=== PATIENT | female | born 1980 | race Caucasian/White ===

== ENCOUNTER 2020-12-13 15:31 | Outpatient (CLI) | payer OTHER, SELFPAY ==
--- NOTE | ~2020-12-13 | CT_ITS ---
EXAMINATION: CT abdomen pelvis wo con DATE: 12/13/2020 15:55 INDICATION: Ventral hernia without obstruction TECHNIQUE: Computed tomography (CT) of the abdomen and pelvis was performed without intravenous contr ast. The dose-length product was 483.91 mGy-cm. Automated exposure control and iterative reconstructi on technique were employed. COMPARISON: None. FINDINGS: Lung bases are unremarkable. No significant pleural or pericardial effusion. There are bila teral breast implants. Heart size is normal. IUD present in the endometrium. There is a fat-containin g supraumbilical hernia with wide neck measuring 3.4 cm. There is a small fat-containing umbilical he rnia. No normal appendix. Nonobstructive bowel gas pattern. No significant vascular abnormality. No lymphadenopathy. The liver, spleen, pancreas, there is modera te lower lumbar spondylosis. Mild osteoarthritis of the hips. Mild levoscoliosis. IMPRESSION: 1. Fat-containing supraumbilical and umbilical hernias. 2: No acute abdominal abnormality. Reviewed, dictated and finalized at location B.
== END 2020-12-13 15:32 | disposition home or self-care (01) ==
PROVIDERS: Visit Provider Surgery Plastic and Reconstructive Surgery
DX: K42.9 Umbilical hernia without obstruction or gangrene (principal)
CPT/HCPCS: 74176

== ENCOUNTER 2021-04-02 14:31 | Outpatient (CLI) | payer OTHER, SELFPAY | END 2021-04-02 14:32 | disposition home or self-care (01) | LOC: ANHSURGERY 14:34 | PROVIDERS: Visit Provider Surgery | DX: K46.9 Unspecified abdominal hernia without obstruction or gangrene (principal); Z01.818 Encounter for other preprocedural examination | CPT/HCPCS: 36415; 86850; 86900; 86901 ==

== ENCOUNTER 2021-04-09 02:16 | Day surgery (SDC) | payer OTHER, SELFPAY ==
[2021-03-30 12:11] VITALS: BMI 28.3
[2021-04-09] VITALS (9 sets, daily range): BP systolic 105–135; BP diastolic 56–87; PULSE 70–95; RESP 14–16; TEMP 36.1–36.7; O2SAT 94–100; BMI 30.2
[2021-04-09] MEDS: ACETAMINOPHEN 500 MG TABLET 1000 MG PO (07:00)
[2021-04-09] MEDS: LACTATED RINGERS 1,000 ML 30 ML IV CONT ×2 (07:00→09:43)
[2021-04-09] MEDS: KETOROLAC 15 MG/ML VIAL (*BKC) IV PUSH (07:00)
--- NOTE | 2021-04-09 07:01 | WPDANESEPPF ---
Anes - Initial Pre Proc Eval Procedure: Operation Date: 04/09/21 07:30 Proposed Procedures p Robotic Assisted Laparoscopic Ventral And Umbilical Hernia Repair With Mesh - Lynn Bond MD Date/Time: 04/09/21 07:01 Surgeon: Lynn Bond MD Pre Op Diagnosis: Ventral and Umbilical Hernia Patient Data Age: 40 Gender: F Height: 1.6 m Weight: 72.57 kg Allergies Allergy/AdvReac Type Severity Reaction Status Date / Time No Known Allergies Allergy Verified 03/30/21 12:09 Home Medications Medication Instructions Recorded Confirmed Type lisdexamfetamine 50 mg capsule 50 mg PO DAILY 11/28/20 03/30/21 History ibuprofen 200 mg capsule 200 mg PO Q6H PRN 02/02/21 03/30/21 History ergocalciferol (vitamin D2) 1,250 mcg PO WEEKLY 03/30/21 03/30/21 History Patient hx anesthesia problems: none Family hx anesthesia problems: none Results Review: All pre-operative results and documents have been reviewed as part of the pre-operative evaluation. [facility] Past Medical History Medical History History of DVT (deep vein thrombosis) Ovarian cyst Surgical History Surgical History History of breast augmentation History of cholecystectomy History of removal of ovarian cyst Family History Family History Grandparent Melanoma Bone cancer Other History of cancer Social History Social History Smoking status: Former smoker Additional smoking assessment comments: PT SMOKES EVERY ONCE IN A WHILE WHEN ANXIOUS X 15 YRS Alcohol intake: current Alcohol use details: 6-12/MONTH Substance use: current Substance use type: marijuana Other substance usage details: EDIBLES Last use: 02/28/21 Living arrangements: with family Additional occupation/education comments: Registered Nurse Spiritual care concerns: No Anes - Eval Final PreProcedure Day of Procedure 04/09/21 07:01 Patient weight: overweight Heart: regular rate and rhythm Lungs: clear to auscultation Airway: Mallampati scale class II Neurological: alert and oriented Last oral intake: >/= 8 hours ASA classification: III Emergent: no Anesthetic plan: proceed Anesthesia type and monitoring: general ETT and standard monitoring Results Review: All pre-operative results and documents have been reviewed as part of the pre-operative evaluation. Informed Consent: The patient's anesthetic plan and its attendant risks and benefits were discussed with the patient/family/POA. Questions were solicited and answers provided to the satisfaction of the patient/family/POA.
--- NOTE | 2021-04-09 07:17 | WPDHPUPDATE1 ---
History and Physical Update Update Date/Time: 04/09/21 07:17 History and Physical has been reviewed, including an updated exam of the patient. There are NO changes in the patient's condition. Risks, benefits, and alternatives have been discussed and questions answered. Patient agrees to proceed with procedure.
[2021-04-09] MEDS: ENOXAPARIN 40 MG/0.4 ML SYRINGE SUB-Q (07:30)
[2021-04-09] MEDS: ceFAZolin 2 GM/D5W 50 ML 2 GM/50 ML BAG IVPB (07:32)
[2021-04-09] MEDS: BUPIVACAINE HCL 0.5% PF 30 ML VIAL INFILTRATE (09:26)
--- NOTE | 2021-04-09 09:35 | W.PM.PROC2 ---
Procedure Note - Detailed Date of Procedure 04/09/21 Pre-op Diagnosis Ventral and Umbilical Hernia Post-op Diagnosis same Procedure Performed robotic assisted repair of supraumbilical ventral and umbilical hernia with mesh Surgeon Lynn Bond MD Anesthesia general Indications 40 y/o F c progressively worsening supraumbilical ventral hernia and small umbilical hernia Findings supraumbilical ventral hernia incarcerated with preperitoneal fat, omentum, small umbilical hernia Description of Procedure The patient was taken the operating room placed in the supine position. After adequate induction of general anesthesia, the patient was prepped and draped in normal sterile fashion. A time-out was then done to verify the patient's identity as well as the procedure being performed. I began by making a 5 mm incision in the left upper quadrant. Through this, a Veress needle was placed into the peritoneal cavity and CO2 gas was insufflated. After adequate pneumoperitoneum was achieved, a 5 mm trocar was placed through this incision. I then placed the laparoscope through this trocar site and under direct visualization I placed a 8 mm port in the left mid abdomen as well as an additional 8 mm port in the left lower abdomen. I then moved the camera to the lower port and replaced the 5 mm port with a 12 mm airport. The robot was then docked to the 3 port sites. I then went to the robotic console. I began by identifying the hernias. A moderate-sized incarcerated hernia was noted in the supraumbilical region. Using graspers, I was able to reduce this hernia. The hernia was noted to contain a large amount of preperitoneal fat and omentum. Once reduced, I also reduced and dissected out the hernia sac. There was also a small umbilical defect. I was able to once again reduce the hernia contents and sac. I then closed both defects with 0 strata fix suture. Of note, the supraumbilical defect measured approximately 3 cm and the umbilical defect was approximately .5 cm. I then placed a 15 x 10 cm symbotex mesh into the abdominal cavity. The Vicryl stitch was placed in the middle of the mesh and brought up centering the mesh over the defect. Once this was done, I used 2 0 V lock suture x 2 to circumferentially suture the mesh to the abdominal. Once the mesh was completely sutured in, I was happy with our tension-free repair. The mesh was noted to have good overlap of the defect. At this point, the robot was undocked and all ports were removed. I then closed the 12 mm port site with an 0 Vicryl [id number] suture at the fascial level. All port sites were then closed with 4 O Monocryl subcuticular suture. The patient tolerated the procedure well, is extubated in the operating room postoperative, OB transferred to the recovery room in stable condition. Implants 15x10 cm Symbotex mesh Estimated Blood Loss 25 Drains No Packing No Pathology none sent Complications No immediate complications Condition stable Disposition PACU
[2021-04-09] MEDS: fentaNYL CITRATE INJ (*CRX) 100 MCG/2 ML VIAL 25 MCG IV PUSH ×4 (10:05→10:36)
[2021-04-09] MEDS: oxyCODONE HCL (*CRX) 5 MG TAB IR PO (10:57)
== END 2021-04-09 11:47 | disposition home or self-care (01) ==
PROVIDERS: Visit Provider Surgery
PROC: (CPT 49653; principal; 2021-04-09 07:30)
DX: K43.6 Other and unspecified ventral hernia with obstruction, without gangrene (principal); K42.9 Umbilical hernia without obstruction or gangrene; Z86.718 Personal history of other venous thrombosis and embolism; Z72.0 Tobacco use; F12.90 Cannabis use, unspecified, uncomplicated
CPT/HCPCS: 49653; S2900; A9270; C1781; J0690; J1100; J1170; J1650; J1885; J2250; J2405; J2704; J2710; J3010; J7030; J7120

== ENCOUNTER 2024-09-02 14:28 | Outpatient (CLI) | payer OTHER, SELFPAY | END 2024-09-02 14:29 | disposition home or self-care (01) | PROVIDERS: Visit Provider Surgery | DX: R19.03 Right lower quadrant abdominal swelling, mass and lump (principal); Z98.890 Other specified postprocedural states; Z97.5 Presence of (intrauterine) contraceptive device | CPT/HCPCS: 74176 ==

== ENCOUNTER 2024-11-01 14:41 | Outpatient (CLI) | payer OTHER, SELFPAY ==
--- NOTE | 2024-11-01 14:30 | ECG_ITS ---
Test Date: 2024-11-01 15:08:52 Measurements Intervals [place] Rate: 89 P: 54 CT: 172 QRS: 23 QRSD: 90 T: 21 QT: 353 QTc: 431 Interpretive Statements SINUS RHYTHM WITHATRIAL COUPLETS BORDERLINE R WAVE PROGRESSION, ANTERIOR LEADS CONSIDER INFERIOR INFARCT, AGE INDETERMINATE BASELINE ARTIFACT- I, II, III, AVR, AVL, AVF, V1-V6 ABNORMAL ECG No previous ECG available for comparison Electronically Signed On 11-01-2024 17:01:06 CDT by Rafat Palacio D.O.
[2024-11-01 15:49] LABS: Hematocrit 35.5 % (37.0-47.0); Hemoglobin 11.8 g/dL (12.0-15.0)
--- OUTSIDE RECORDS SUMMARY | 2024-11-01 16:54 | XMS_ITS | Clinical Summary ---
Author Organization [facility] [employer] Address [address] [place] [address] Care Team Providers Care Invasive Manager Name Role Phone Collin Huber MD Primary Care Provider [phone] Source Comments [facility] [employer],non-owned Affiliates and Associated Physician Practices is amultiple site organization consisting of ambulatory clinics and hospital sitesin [place], [place], [place] and [place]. This disclosure is being madepursuant to the Care Everywhere program and may not contain all information available regarding this patient. Last updated 18.[employer] Allergies Active Allergy Reactions Criticality Noted Date Comments Contrast-Iodinated Agents For Ct/Other Urticaria Medium 06/03/2017 Pt received 100 mL of omnipaque 300 per iv after injection had red blotches on her face Medications * Be aware that medications may not be up to date on this document. Alwaysverify current medications with the patient. melatonin 10 MG capsule Take 10 mg by mouth nightly as needed for Insomnia Active diphenhydrAMINE (BENADRYL) 25 MG capsule Take 25-50 mg by mouth nightly as needed for Itching Active Active Problems Problem Noted Date Diagnosed Date Abdominal pain, epigastric 05/12/2020 Hypokalemia 05/12/2020 Nausea and vomiting 05/12/2020 Acute on chronic pancreatitis 05/12/2020 Idiopathic acute pancreatitis 11/13/2017 Abdominal pain, acute, epigastric 11/13/2017 Left shift without diagnosis of specific infecti on 06/05/2017 Alcohol-induced acute pancreatitis 06/03/2017 Alcohol-induced acute pancre atitis without infection or necrosis 12/24/2016 Non-intractable vomiting with nausea 12/24/2016 History of DVT (deep vein thrombosis) 12/24/2016 Social History Tobacco Use Types Packs/Day Years Used Date Smoking Tobacco: Former Cigarettes Q uit: 09/06/2015 Smokeless Tobacco: Never Alcohol Use Standard Drinks/Week Comments Yes 0 (1 standard drink = 0.6 oz pur e alcohol) occasional Comments No Sex and Gender Information Value Date Recorded Sex Assigned at Not on file Legal Sex Female 12:03 AM [facility] Gender Identity Not on file Sexual Orientation Not on file Last Filed Vital Signs Vital Sign Reading Time Taken Comments Blood Pressure 116/74 05/14/2020 7:10 AM [facility] Pulse 93 05/14/2020 7:10 AM [facility] Temperature 36.8 C (98.2 F) 05/14/2020 7:10 AM [facility] Respiratory Rate 16 05/13/2020 11:53 PM [facility] Oxygen Saturation 97% 05/14/2020 7:10 AM [facility] Inhaled Oxygen Concentration - - Weight 75 kg (165 lb 4.8 oz) 05/12/2020 7:44 AM [facility] Height 160 cm (5' 3 ) 05/12/2020 7:44 AM [facility] Body Mass Index 29.28 05/12/2020 7:44 AM [facility] Plan of Treatment Health Maintenance Due Date Last Done Comments COLOGUARD (AGES 45-75) - COL ON CA SCREENING 1979 COLON MONITORING 1979 COLONOSCOPY - COLON CA SCREENING 1979 CT COLONOGRAPHY - COLON CA SCREENING 1979 Colorectal Cancer Screening 1979 FIT - COLON CA SCREENING 1979 FLEX SIG - COLON CA SCREENING 1979 MAMMOGRAM 1979 PAP SMEAR 1979 HIV SCREENING 1994 HEPATITIS C SCREENING 06/28/1997 DTAP/TDAP/TD VACCINES (1 - Tdap) 1998 HEPATITIS B VACCINE (1 of 3 - 19+ 3-dose series) 1998 LIPID TESTING 08/18/2021 08/18/2016 COVID-19 VACCINE (1 - 2023-2 5 season) 2024 DEPRESSION SCREENING 07/07/2024 INFLUENZA VACCINE (Season Ended) 2025 ZOSTER VACCINE (1 of 2) 2029 HIB VACCINE Aged Out No longer eligi ble based on patient's age to complete this topic HPV VACCINE Aged Out No longer eligi ble based on patient's age to complete this topic MENINGOCOCCAL (Group B) VACC INE SHARED DECISION-MAKING Aged Out No longer eligibl e based on patient's age to complete this topic MENINGOCOCCAL GROUPS A/C/Y/W VACCINE Aged Out No longer eligible b ased on patient's age to complete this topic PNEUMOCOCCAL VACCINE Aged Out No long er eligible based on patient's age to complete this topic Procedures Procedure Name Priority Date/Time Associated Diagnosis Comments LIPID PROFILE AM Draw 08/18/2016 4:13 AM [facility] from Last 3 Months or Most Recently Relevant to Health Maintenance Results * (ABNORMAL) LIPID PROFILE (08/18/2016 4:13 AM [facility]) Pathologist [facility] Cholesterol 112 <200 mg/dL 08/18/2016 6:10 AM [facility] Triglycerides 42 <150 mg/dL 08/18/2016 6:10 AM [facility] HDL Cholesterol 46 >40 mg/dL 7 6:10 AM [facility] Chol HDL Ratio 2.4 1.0 - 6.0 08/18/2016 6:10 AM [facility] LDL Calculated 58(L) 65 - 130 mg/dL 08/18/2016 6:10 AM [facility] VLDL Calculated 8(L) 10 - 40 mg/dL 08/18/2016 6:10 AM [facility] Blood BLOOD SPECIMEN / Unknown Lab Venipuncture / Unknown 08/18/2016 4:13 AM [facility] 08/18/2016 5:[address] [facility] - 08/18/2016 6:10 AM [facility] Lipid Profile Comment: CHOLESTEROL LEVEL..................CLINICAL INTERPRETATION LESS THAN 200 MG/DL..............................DESIRABLE 200-239 MG/DL..............................BORDERLINE HIGH GREATER THAN 240 MG/DL................................HIGH LDL-CHOLESTEROL LEVEL..............CLINICAL INTERPRETATION LESS THAN 100 MG/DL................................OPTIMAL 100-129 MG/DL.................................NEAR OPTIMAL GREATER THAN 160 MG/DL...........................HIGH RISK HDL RISK LEVEL GREATER THEN 60 MG/DL............................DECREASED 40-60 MG/DL........................................AVERAGE LESS THAN 40 MG/DL...............................INCREASED TRIGLYCERIDE LEVEL..................CLINICAL INTERPRETATION LESS THAN 150 MG/DL...............................DESIRABLE 150-199 MG/DL...............................BORDERLINE HIGH 200-499 MG/DL..........................................HIGH GREATER THAN 500..................................VERY HIGH THE NATIONAL CHOLESTEROL EDUCATION PROGRAM HAS SET THE ABOVE GUIDELINES (REFERANCE VALUES) FOR CHOLESTEROL AND HDL. RISK ASSOCIATED WITH CHOLESTEROL/HDL RATIOS RISK....................MALE RATIO.............FEMALE RATIO 1/2 AVERAGE.................<3.4.......................<3.3 LOW RISK.................... 4.0 ...................... 3.8 AVERAGE..................... 5.0 ...................... 4.5 2X AVERAGE.................. 9.5 ...................... 7.0 3X AVERAGE...................>23........................>11 Collin Huber MD LAB - CHEMISTRY ORDERABLES Final Result [facility] [address] from Last 3 Months or Most Recently Relevant to Health Maintenance Insurance [employer] Advance Directives * Full Code (Latest Code Status on File) Date Activated Date Inactivated Comments 06/03/2017 9:07 PM 06/09/2017 5:48 PM * Full Code Date Activated Date Inactivated Comments 12/24/2016 3:08 AM 12/29/2016 12:03 PM * Full Code Date Activated Date Inactivated Comments 08/16/2016 9:35 PM 08/22/2016 2:16 PM Care Teams Invasive Manager Relationship Specialty Start Date End Date Collin Huber MD [address] [place] [address] PCP - General Internal Medicine 03/19/16
--- OUTSIDE RECORDS SUMMARY | 2024-11-01 16:54 | XMS_ITS | Clinical Summary ---
Author Organization [facility] Address [address] [place] [address] Care Team Providers Care Instructor Bus Trolley And Taxi Name Role Phone Collin Huber MD Primary Care Provider [phone] Allergies No known active allergies Medications ALPRAZolam (XANAX) 0.5 MG tablet Take 1 tablet (0.5 mg total) by mouth nightly at bedtime. 3 Active cyclobenzaprine (FLEXERIL) 10 MG tablet Take 1 tablet (10 mg total) by mouth nightly as needed for Muscle Spasms. 3 Active metoprolol succinate ER (TOPROL-XL) 100 MG 24 hr tablet Take 1 tablet (100 mg total) by mouth every evening. 3 Active phentermine (ADIPEX-P) 37.5 MG tablet Take 1 tablet (37.5 mg total) by mouth daily as needed (takes on days she works). On days she works, typically to friday 3 Active Lysine HCl 500 MG Tab Take 500 mg by mouth nightly at bedtime. Active Lysine HCl 500 MG Tab Take 500 mg by mouth daily as needed (fever blister). Active zinc gluconate 50 MG Tab Take 1 tablet (50 mg total) by mouth every evening. Active vitamin C (ASCORBIC ACID) 1000 MG tablet Take 1 tablet (1,000 mg total) by mouth every evening. Active vitamin D2, ergocalciferol, (DRISDOL) 1.25 mg capsule Take 1 capsule (1.25 mg total) by mouth every 7 days. Takes on Wednesdays in the evening Active esomeprazole (NEXIUM) 20 MG capsule Take 1 capsule (20 mg total) by mouth nightly at bedtime. Active HYDROcodone-acetam inophen (NORCO) 10-325 MG tabletIndications: Acute Pain < 7 Day Supply Take 0.5-1 tablets by mouth every 6 (six) hours as needed for Pain. Indications: Acute Pain < 7 Day Supply 15 tablet 3 Active ondansetron (ZOFRAN-ODT) 4 MG disintegrating tablet Take 1 tablet (4 mg total) by mouth every 12 (twelve) hours as needed for Nausea. 20 tablet 3 Active Active Problems Problem Noted Date Diagnosed Date Pancreatitis (HHS/HCC) 07/02/2023 Encounters Date Type Department Care Team Description 10/07/2024 4:27 PM CDT - 10/07/2024 11:59 PM CDT Hospital Encounter [facility] [address] [place] [address] Chante Christensen CNM Discharge Disposition: Home or Self Care (Routine Discharge) 10/07/2024 Travel from Last 3 Months Social History Tobacco Use Types Packs/Day Years Used Date Smoking Tobacco: Some Days Cigarettes Started: 2009 Tobacco Cessation:Ready to Q uit: Not Asked; Counseling Given: Not Answered [facility] Utilities Answer Date Recorded In the past 12 months has e [employer], [employer], oil, or water [employer] threatened to shut off services in your home? No 07/02/2023 Humiliation, Afraid, Rape, and Kick questionnair e Answer Date Recorded Within the last year, have y ou been afraid of your partner or ex-partner? No 07/02/2023 Within the last year, have y ou been humiliated or emotionally abused in other ways by your partner or ex-partner? No Within the last year, have y ou been kicked, hit, slapped, or otherwise physically hurt by your partner or ex-partner? No 07/02/2023 Within the last year, have y ou been raped or forced to have any kind of sexual activity by your partner or ex-partner? No 07/02/2023 Overall Financial Resource Strain (CARDIA) Answe r Date Recorded How hard is it for you to pa y for the very basics like food, housing, medical care, and heating? Not hard at all 07/02/2023 Hunger Vital Sign Answer Date Recorded Within the past 12 months, y ou worried that your food would run out before you got the money to buy more. Never true 07/02/20 23 Within the past 12 months, t he food you bought just didn't last and you didn't have money to get more. Never true 07/02/2023 PRAPARE - Transportation Answer Date Re corded In the past 12 months, has l ack of transportation kept you from medical appointments or from getting medications? No 06/07 In the past 12 months, has l ack of transportation kept you from meetings, work, or from getting things needed for daily living? No 07/02/2023 Housing Stability Vital Sign Answer Michael e Recorded In the last 12 months, was t here a time when you were not able to pay the mortgage or rent on time? No 07/02/2023 In the last 12 months, how many places have you lived? 1 07/02/2023 In the last 12 months, was t here a time when you did not have a steady place to sleep or slept in a half-way (including now)? No 07/02/2023 Comments Unknown Sex and Gender Information Value Date Recorded Sex Assigned at Not on file Legal Sex Female 7:19 PM CDT Gender Identity Not on file Sexual Orientation Not on file Last Filed Vital Signs Vital Sign Reading Time Taken Comments Blood Pressure 135/73 2023 11:15 AM SCIENTIFIC HELPER Pulse 78 2023 11:15 AM SCIENTIFIC HELPER Temperature 36.9 C (98.5 F) 2023 11:15 AM SCIENTIFIC HELPER Respiratory Rate 20 2023 11:15 AM SCIENTIFIC HELPER Oxygen Saturation 100% 2023 11:15 AM SCIENTIFIC HELPER Inhaled Oxygen Concentration - - Weight 80.1 kg (176 lb 9.6 oz) 07/02/2023 11:11 AM SCIENTIFIC HELPER Height 160 cm (5' 3 ) 07/02/2023 11:11 AM SCIENTIFIC HELPER Body Mass Index 31.28 07/02/2023 11:11 AM SCIENTIFIC HELPER Plan of Treatment Health Maintenance Due Date Last Done Comments Cervical Cancer Screening Pap Smear (Age 30 to 64) Every 3 Years 1979 Colorectal Cancer Screening Colonoscopy (10 Years) 1979 Annual Physical 1982 Hepatitis C 1997 DTaP, Tdap and Td Vaccines (1 - Tdap) 1998 Hepatitis B Vaccines (1 of 3 - 19+ 3-dose series) 1998 Pneumococcal Vaccine: Pediatrics (0 to 5 Years) and At-Risk Patients (6 to 49 Years) (1 of 2 - PCV) 1998 Cervical Cancer Screening Pap with HPV Testing (Age 30 to 64) Every 5 Years 2009 Cervical Cancer Screening with HPV 2009 COVID-19 Vaccine ( - season) 2024 Mammogram Screening 10/07/2026 10/07/2024, 10/06/2023, 09/30/2022, Additional history exists HPV Vaccines Aged Out No longer eligi ble based on patient's age to complete this topic Meningococcal B Vaccine Aged Out No l onger eligible based on patient's age to complete this topic Meningococcal Vaccine Aged Out No gracia chandni eligible based on patient's age to complete this topic RSV Immunizations Under 20 Months Aged Out No longer eligible based on patient's age to complete this topic Procedures Procedure Name Priority Date/Time Associated Diagnosis Comments MG SCREENING IMPLANT W JOSE G SRIRAM DIGI Routine 10/07/2024 4:39 PM CDT Encounter for screening mammogram for malignant neoplasm of breast from Last 3 Months Results * MG SCREENING IMPLANT W JOSE G SRIRAM DIGI (10/07/2024 4:39 PM CDT) Anatomical Region Laterality Modality Breast Bilateral Mammography 10/07/2024 5:20 PM CDT Impressions 10/07/2024 5:23 PM CDT IMPRESSION: No significant interval change. No mammographic evidence of malignancy. RECOMMENDATION: Routine ScreeningBilateral OVERALL IMAGING ASSESSMENT: ACR BI-RADS 2 - BENIGN FINDING(S). Ordered By: CHANTE CHRISTENSEN Interpreted By: Chadd Rdz, 10/07/2024 5:20 PM Narrative 10/07/2024 5:23 PM CDT [id number] [place] [address] EXAMINATION: MG SCREENING IMPLANT W JOSE G SRIRAM DIGI INDICATIONS: Screening TECHNIQUE: Digital full field CC and MLO screening mammography bilaterally to include implant displacement views and 3-D Tomosynthesis technique. This study was read with the assistance of a computer-aided detection system. HISTORY: No reported breast complaint. Prior breast implant augmentation. No documented personal or first degree family history of breast cancer. No documented prior breast biopsy. COMPARISON: 10/06/2023, 09/30/2022, 06/12/2020, 06/05/2016, and 05/29/2016. TISSUE DENSITY: There are scattered areas of fibroglandular density. FINDINGS: Intact subglandular saline breast implants bilaterally. No suspicious microcalcification or mass. No developing asymmetry or architectural distortion. No axillary adenopathy. Chante Christensen [facility] Final Result from Last 3 Months Insurance Employee Benefit Plans OPEN ACCESS [facility] Advance Directives * Full Code (Latest Code Status on File) Date Activated Date Inactivated Comments 07/02/2023 12:17 PM 2023 4:08 PM Care Teams Instructor Bus Trolley And Taxi Relationship Specialty Start Date End Date Collin Huber MD PCP - General INTERNAL MEDICINE 06/12/20
== END 2024-11-01 14:42 | disposition home or self-care (01) ==
LOC: ANHSURGERY 14:46
PROVIDERS: Anesthesiology; Visit Provider Surgery Plastic and Reconstructive Surgery
DX: N64.81 Ptosis of breast (principal); Z01.818 Encounter for other preprocedural examination; R94.31 Abnormal electrocardiogram [ECG] [EKG]
CPT/HCPCS: 36415; 85014; 85018; 93005

== ENCOUNTER 2024-11-09 00:59 | Day surgery (SDC) | payer OTHER, SELFPAY ==
[2024-10-26 14:10] VITALS: BMI 30.2
--- NOTE | 2024-10-26 14:32 | PC.NURSE ---
Report to the Outpatient Waiting Room, entrance under the green pavilion located off [facility], at time 6:30AM on date 11/09/2024. Planned Procedure Time: 8:30AM.? Time changes happen often and if your time is changed the preop area will call you the afternoon before. - You and your visitor will be asked to self-screen and do not enter if you have any COVID symptoms. Please call surgeon if you need to reschedule. - A mask is optional within the hospital at this time. Patients may have clear liquids (water, carbonated beverages, clear teas, apple juice) until 3 hours prior to surgery with a maximum of 20 ounces. - No food from midnight until time of surgery and no smoking, or chewing tobacco (or any form of nicotine). No chewing gum, candy or mints. Take only the following medications with a SIP of water on the morning of surgery: Xanax as needed DO NOT STOP ANY OF YOUR OTHER PRESCRIPTION MEDICATIONS PRIOR TO SURGERY EXCEPT THE FOLLOWING Hold all vitamins and supplements for 3 days per anesthesiologist- last dose 11/05/24 Medications to discontinue per physician: Zepbound per Dr. Carpenter Date to take last dose: 09/27/24 Please no make-up, nail french, hairspray, perfume, deodorant, or body powder the day of surgery.? No jewelry (including any body piercings) or valuables the day of surgery, leave them at home.? Please take a shower or bath the night before, or the morning of, surgery with an antibacterial soap.? Wear comfortable, loose fitting clothing.? - Jewelry must be removed prior to entering the operating room.? Rings and piercings that are not removed may be cut off. - The hospital will not accept responsibility for valuables.? - Please leave all valuables, including medications, at home the day of surgery. If you are going home after surgery, a licensed front end loader driver must drive you home.? - NO public transportation without another adult if you receive anesthesia. - We recommend that an adult stay with you for 24 hours following discharge. - We also recommend that you do not drive, make important decision, drink alcoholic beverages, or take any drugs that were not prescribed by your health care provider for at least 24 hours after your discharge time. Follow any additional instructions given to you from your surgeon. Telephone instructions given to ____patient and asked if any additional questions and then verbalized understanding. Patient advised to call surgeon office or pre surgery nurse liaison [phone] if any additional questions.
[2024-11-09] VITALS (10 sets, daily range): BP systolic 98–120; BP diastolic 62–88; PULSE 82–105; RESP 15–20; TEMP 36.2–36.6; O2SAT 95–100; BMI 30.4
--- OUTSIDE RECORDS SUMMARY | 2024-11-09 01:02 | XMS_ITS | Clinical Summary ---
Author Organization [facility] [employer] Address [address] [place] [address] Care Team Providers Care Internet E Commerce Specialist Name Role Phone Collin Huber MD Primary Care Provider [phone] Source Comments [facility] [employer],non-owned Affiliates and Associated Physician Practices is amultiple site organization consisting of ambulatory clinics and hospital sitesin [place], [place], [place] and [place]. This disclosure is being madepursuant to the Care Everywhere program and may not contain all information available regarding this patient. Last updated 18.Phase III Development [employer] Allergies Active Allergy Reactions Criticality Noted Date [...] on file Legal Sex Female 12:03 AM FORMING DEPARTMENT SUPERVISOR Gender Identity Not on file Sexual Orientation Not on file Last Filed Vital Signs Vital Sign Reading Time Taken Comments Blood Pressure 116/74 05/14/2020 7:10 AM FORMING DEPARTMENT SUPERVISOR Pulse 93 05/14/2020 7:10 AM FORMING DEPARTMENT SUPERVISOR Temperature 36.8 C (98.2 F) 05/14/2020 7:10 AM FORMING DEPARTMENT SUPERVISOR Respiratory Rate 16 05/13/2020 11:53 PM FORMING DEPARTMENT SUPERVISOR Oxygen Saturation 97% 05/14/2020 7:10 AM FORMING DEPARTMENT SUPERVISOR Inhaled Oxygen Concentration - - Weight 75 kg (165 lb 4.8 oz) 05/12/2020 7:44 AM FORMING DEPARTMENT SUPERVISOR Height 160 cm (5' 3 ) 05/12/2020 7:44 AM FORMING DEPARTMENT SUPERVISOR Body Mass Index 29.28 05/12/2020 7:44 AM FORMING DEPARTMENT SUPERVISOR Plan of Treatment Health Maintenance Due Date [...] LIPID PROFILE AM Draw 08/18/2016 4:13 AM FORMING DEPARTMENT SUPERVISOR from Last 3 Months or Most Recently Relevant to Health Maintenance Results * (ABNORMAL) LIPID PROFILE (08/18/2016 4:13 AM FORMING DEPARTMENT SUPERVISOR) Pathologist [facility] Cholesterol 112 <200 mg/dL 08/18/2016 6:10 AM [facility] Triglycerides 42 <150 mg/dL 08/18/2016 6:10 AM [facility] HDL Cholesterol 46 >40 mg/dL 7 6:10 AM [facility] Chol HDL Ratio 2.4 1.0 - 6.0 08/18/2016 6:10 AM [facility] LDL Calculated 58(L) 65 - 130 mg/dL 08/18/2016 6:10 AM [facility] VLDL Calculated 8(L) 10 - 40 mg/dL 08/18/2016 6:10 AM [facility] Blood BLOOD SPECIMEN / Unknown Lab Venipuncture / Unknown 08/18/2016 4:13 AM FORMING DEPARTMENT SUPERVISOR 08/18/2016 5:00 AM [facility] - 08/18/2016 6:10 AM [facility] Lipid Profile Comment: CHOLESTEROL LEVEL..................CLINICAL INTERPRETATION [...] MD LAB - CHEMISTRY ORDERABLES Final Result [facility] [address] from Last 3 Months or Most Recently Relevant to Health Maintenance Insurance [employer] Advance Directives * Full Code (Latest Code Status on File) Date Activated Date Inactivated Comments 06/03/2017 9:07 PM 06/09/2017 5:48 PM * Full Code Date Activated Date Inactivated Comments 12/24/2016 3:08 AM 12/29/2016 12:03 PM * Full Code Date Activated Date Inactivated Comments 08/16/2016 9:35 PM 08/22/2016 2:16 PM Care Teams Internet E Commerce Specialist Relationship Specialty Start Date End Date Collin Huber MD [address] [place] [address] PCP - General Internal Medicine 03/19/16
--- OUTSIDE RECORDS SUMMARY | 2024-11-09 01:02 | XMS_ITS | Clinical Summary ---
Author Organization [facility] Address [address] [place] [address] Care Team Providers Care Classified Advertising Clerk Name Role Phone Collin Huber MD Primary Care Provider [phone] Allergies No known active allergies Medications ALPRAZolam [...] - 10/07/2024 11:59 PM CDT Hospital Encounter [facility] [address] [place] [address] Chante Christensen CNM Discharge Disposition: Home or Self Care (Routine Discharge) 10/07/2024 Travel from Last 3 Months Social History Tobacco Use Types Packs/Day Years Used Date Smoking Tobacco: Some Days Cigarettes Started: 2009 Tobacco Cessation:Ready to Q uit: Not Asked; Counseling Given: Not Answered [facility] Utilities Answer Date Recorded In the past 12 months has e [employer], [employer], oil, or water [employer] threatened to shut off services in your [...] place to sleep or slept in a fci (including now)? No 07/02/2023 Comments Unknown Sex and Gender Information Value Date Recorded Sex Assigned at Not on file Legal Sex Female 7:19 PM CDT Gender Identity Not on file Sexual Orientation Not on file Last Filed Vital Signs Vital Sign Reading Time Taken Comments Blood Pressure 135/73 2023 11:15 AM DOUGH PANNER Pulse 78 2023 11:15 AM DOUGH PANNER Temperature 36.9 C (98.5 F) 2023 11:15 AM DOUGH PANNER Respiratory Rate 20 2023 11:15 AM DOUGH PANNER Oxygen Saturation 100% 2023 11:15 AM DOUGH PANNER Inhaled Oxygen Concentration - - Weight 80.1 kg (176 lb 9.6 oz) 07/02/2023 11:11 AM DOUGH PANNER Height 160 cm (5' 3 ) 07/02/2023 11:11 AM DOUGH PANNER Body Mass Index 31.28 07/02/2023 11:11 AM DOUGH PANNER Plan of Treatment Health Maintenance Due Date [...] 5:20 PM Narrative 10/07/2024 5:23 PM CDT [id number] [place] [address] EXAMINATION: MG SCREENING IMPLANT W JOSE G [...] architectural distortion. No axillary adenopathy. Chante Christensen [facility] Final Result from Last 3 Months Insurance [employer] OPEN ACCESS [facility] Advance Directives * Full Code (Latest Code Status on File) Date Activated Date Inactivated Comments 07/02/2023 12:17 PM 2023 4:08 PM Care Teams Classified Advertising Clerk Relationship Specialty Start Date End Date Collin Huber MD PCP - General INTERNAL MEDICINE 06/12/20
--- OUTSIDE RECORDS SUMMARY | 2024-11-09 01:02 | XMS_ITS | Clinical Summary ---
Author Organization [facility] Address [address] [place] [address] Phone Care Team Providers Care Regulatory Specialist Name Role Phone Collin Huber MD Primary Care Provider [phone] Encounters Date Type Department Care Team Description 11/04/2024 7:52 AM CDT - 11/04/2024 11:59 PM CDT Hospital Encounter [facility] [address] [place] [phone] Collin Huber MD Discharge Disposition: Discharged to home or Selfcare 11/04/2024 7:45 AM CDT - 11/04/2024 7:51 AM CDT Hospital Encounter [facility] [address] [place] [phone] Collin Huber MD Discharge Disposition: Discharged to home or Selfcare 11/04/2024 Transcribe Orders [facility] [address] [place] [id number] Collin Huber MD Hypertension, unspecified type (Primary Dx) 11/04/2024 Travel 11/03/2024 Transcribe Orders [facility] [address] [place] [address] Collin Huber MD Abnormal EKG (Primary Dx); Hypertension, unspecified type from Last 3 Months Social History Tobacco Use Types Packs/Day Years Used Date Smoking Tobacco: Never Assessed Comments Unknown Sex and Gender Information Value Date Recorded Sex Assigned at Female 11/04/2024 10:46 AM CDT Legal Sex Female 5:24 PM CDT Gender Identity Female 11/04/2024 10:46 AM CDT Sexual Orientation Not on file Plan of Treatment Health Maintenance Due Date Last Done Comments Hepatitis C Virus (HCV) Screening 1979 Hepatitis B Immunization (1 of 3 - 19+ 3-dose series) 1998 Pap Smear 2000 Cervical Cancer Screening (CCS) 2009 HPV/Cotest 2009 SARS-COV-2 Immunization ( season) 2024 Colonoscopy 2024 Colorectal Cancer Screening 2024 Influenza Immunization (Season Ended) 2025 Mammogram 10/07/2025 10/07/2024, 09/2024, 10/06/2023, Additional history exists Respiratory Syncytial Virus (RSV) Immunization (Adult) (1 - 1-dose 75+ series) 2054 TdaP Immunization Completed 10/22/2011 Discussion re Starting/Frequency of Mammograms Completed 10/07/2024, 10/06/2023, 09/30/2022, Additional history exists Human Papillomavirus (HPV) Immunization Aged Out No longer eligible based on patient's age to complete this topic Meningococcal Immunization (ACWY) Aged Out No longer eligible based on patient's age to complete this topic Pneumococcal Immunization Combined Aged Out No longer eligible based on patient's age to complete this topic Rotavirus Immunization Aged Out No lo nger eligible based on patient's age to complete this topic Procedures Procedure Name Priority Date/Time Associated Diagnosis Comments ADULT CV STRESS TREADMILL EKG Routine 11/04/2024 4:38 PM CDT Abnormal EKG Hypertension, unspecified type EKG 12 LEAD Routine 11/04/2024 7:57 AM CDT Hypertension, unspecified type from Last 3 Months Results * ADULT CV STRESS TREADMILL EKG (11/04/2024 4:38 PM CDT) Anatomical Region Laterality Modality CARDIO N/A Electrocardiogra phy Collin Huber MD IMG STRESS Final Result * EKG 12 LEAD (11/04/2024 7:57 AM CDT) 11/04/2024 7:57 AM CDT Impressions EXTERNAL EKG - 11/04/2024 10:38 AM CDT [address] [address] Test Date: 2024-11-04 Pat Name: MARK CHOUDHARY Department: Room: Gender: F Spotter: MAGGIE : 1980 Requested By: COLLIN HUBER Order Number: [id number] Reading MD: Collin Huber MD Measurements Intervals [place] Rate: 81 P: 57 AR: 163 QRS: 31 QRSD: 92 T: 26 QT: 375 QTc: 436 Interpretive Statements Sinus rhythm Electronically Signed On 11-04-2024 10:33:51 CDT by Collin Huber MD Narrative Procedure Note Collin Huber MD - 11/04/2024 IMPRESSION: [address] [address] Test Date: 2024-11-04 Pat Name: MARK CHOUDHARY Department: Room: Gender: F Spotter: MAGGIE : 1980 Requested By: COLLIN HUBER Order Number: [id number] Reading MD: Collin Huber MD Measurements Intervals [place] Rate: 81 P: 57 AR: 163 QRS: 31 QRSD: 92 T: 26 QT: 375 QTc: 436 Interpretive Statements Sinus rhythm Electronically Signed On 11-04-2024 10:33:51 CDT by Collin Huber MD us Collin Huber MD IMG ECG ORDERABLES Final Result EXTERNAL EKG from Last 3 Months Insurance [employer] Care Teams Regulatory Specialist Relationship Specialty Start Date End Date Collin Huber MD [address] [place] [address] PCP - General Internal Medicine 11/04/24
--- NOTE | 2024-11-09 06:53 | WPDHPUPDATE1 ---
History and Physical Update Update Date/Time: 11/09/24 06:53 History and Physical has been reviewed, including an updated exam of the patient. There are NO changes in the patient's condition. Risks, benefits, and alternatives have been discussed and questions answered. Patient agrees to proceed with procedure.
--- NOTE | 2024-11-09 06:56 | P.OP_ITS ---
Procedure Note - Detailed Date of Procedure 11/09/24 Pre-op Diagnosis Breast Ptosis, Skin Laxity Post-op Diagnosis Same Procedure Performed 1. Bilateral mastoepxy with Galaflex 2. Belt lipectomy with suction lipectomy 3. Fat grafting bilateral hips Surgeon John Carpenter MD Anesthesia General Findings Mastopexy Inverted T Superior medial pedicle Tissue removed: 1,459 grams Lipoaspirate: 3,500 cc Fat grafting bilateral hip dips: Right - 200 cc Left - 200 cc Description of Procedure They are here today for the above procedures. Previously and again today the risks, benefits, alternatives were discussed in extensive detail. I wanted them to be very realistic about the risks involved as well as expectations. We discussed aftercare and what to monitor for. I was very upfront about the risks of wound breakdown leading to loss of skin, open wounds, and need for additional procedures with permanent abdominal deformity. We discussed DVT/PE risks and management. Made sure answered all of their questions to their satisfaction today and consent was obtained. They were marked in the preoperative holding area with their verification. The patient was taken to the operating room. Anesthesia was provided by anesthesiology. A Cary catheter was started. Posterior Placed prone on the operating room table with care taken to protect from injury. Prepped and draped in a standard sterile fashion. A surgical time-out was taken. Stab incisions were made and tumescent solution was infiltrated. Once adequate time was allowed for hemostasis suction lipectomy was completed with a 3mm multihole cannula to closed gravity separation device. Once adequate adipose harvest I bypassed the collection device and a 4mm basket and 4mm lionel cannula were utilized to complete suction lipectomy based on S.A.F.E. technique in multiple planes and passes. Suction lipectomy continued to result based on pre-operative planning, intra-operative observation, and rolling pinch test which were in full agreement. A 10 blade was used to make the upper incision and dissection was continued inferior elevating what we necessary for closure. I placed patient in slight jackknife position and excised intervening tissue. This was closed with 3 point suture with 2-0 Vicryl followed 2-0 PDO strattafix, 3-0 stratafix ,running subcuticular 4-0 Monocryl, and tissue glue. Laterally luigi were placed for turning. Breast Patient was then placed supine with care taken to protect from injury. Eleven blade was utilized to make a stab incision and infiltrated laterally as a field block. I tailor tacked the breast into position. Placed her in a sitting position. Verified the nipple-areolar location based on preoperative planning as well as intraoperative observations and measurements in full agreement. She was placed supine. I de-epithelialized the pedicle. Care was taken to protect the implant from injury. Implant protected by capsule throughout. Irrigated with Betadine abx solution as a precaution. Galaflex was soaking in Betadine abx solution. Trimmed and sutured into place with 2-0 Vicryl. I closed along the IMF with 2-0 Stratafix. Along the vertical with 2-0 PDS. I closed around the Marco with 3-0 strata fix. 3-0 Monocryl along the vertical. 3-0 Stratafix along the IMF. I finally closed everything with running subcuticular 4-0 Monocryl and tissue glue. Brijjit's placed. Abdomen I placed the patient in a flexed position to verify the upper and lower markings would reach. I then placed supine. A thorough abdominal examination was completed. Stab incisions were made and tumescent solution infiltrated. Stab incisions were made and tumescent solution was infiltrated. Once adequate time was allowed for hemostasis a 4mm basket and 4mm lionel cannula were u tilized to complete suction lipectomy based on S.A.F.E. technique in multiple planes and passes. Suction lipectomy continued to result based on pre-operative planning, intra-operative observation, and rolling pinch test which were in full agreement. A 10 blade was used to make the upper incision. I continued dissection down to the level of fascia. Elevated just what was necessary for repair of the diastasis. I then again flexed the bed to verify the upper skin flap would reach the lower markings without tension. Once verified I placed her supine once again and a 10 blade used to make the lower incision. I elevated up to level the umbilicus and left the umbilicus intact on a well-vascularized stalk. The intervening tissue was removed. A 2 mm blunt cannula with 0.5% bupivacaine was injected deep to the fascia bilaterally. I plicated the diastasis recti using 0 PDO Stratafix barbed suture. This was in 2 separate layers using 2 separate sutures as well. I also repaired lateral to the rectus using two layers of 0 PDO Stratafix. After the patient was flexed (below) plicated the fascia with 0 PDO Stratafix in two separate layers. The patient was flexed and starting from superior to inferior began plication using 2-0 Vicryl to obliterate all space in a standard progressive tension fashion. At the umbilicus I marked out the location of the skin and inset this with 3-0 Monocryl and 4-0 Vicryl. I continued the remainder of the plication using 2-0 Vicryl until I reached my lower planned scar line. I trimmed any excess skin of the upper flap making sure this was a tension-free closure. 15 Hardy drain was placed. I then approximated using a 3 point suture with 2-0 Vicryl followed by 2-0 PDO Stratafix, 3-0 Stratafix ,running subcuticular 4-0 Monocryl, and tissue glue. Fluffs, surgical bra, and an abdominal binder were placed. The patient was transferred to the bed in a flexed position. Awoken and taken to the PACU without difficulty. All instrument and sponge counts were correct at the end of the case. Estimated Blood Loss 100 Drains Yes (15 Hardy) Packing No Pathology None sent Complications No immediate complications Condition Stable Disposition PACU
[2024-11-09 07:17] LABS: Urine Cotinine NEGATIVE
[2024-11-09] MEDS: LACTATED RINGERS 1,000 ML 30 ML IV CONT ×2 (07:55→16:00)
[2024-11-09] MEDS: TRANEXAMIC ACID 1,000MG/ISO100 1,000 MG/100 ML BAG 200 MG IVPB (07:56)
--- NOTE | 2024-11-09 08:06 | WPDANESEPPF ---
Anes - Initial Pre Proc Eval Procedure: Operation Date: 11/09/24 08:30 Proposed Procedures p Bilateral Breast Mastopexy with Galaflex - John Carpenter MD s Belt Lipectomy with Liposuction - John Carpenter MD s Fat Grafting Bilateral Hips - MD bernadine Ware Bilateral Breast Implant Exchange - John Carpenter MD Date/Time: 11/09/24 08:06 Surgeon: John Carpenter MD Pre Op Diagnosis: Breast Ptosis, Skin Laxity Patient Data Age: 44 Gender: F Height: 1.6 m Weight: 77.8 kg Last Vital Signs Temp 97.2 F L 11/09/24 07:53 Pulse 82 11/09/24 07:53 BP 98/69 L 11/09/24 07:53 Pulse Ox 100 11/09/24 07:53 O2 Del Method Room Air 11/09/24 07:53 Allergies Allergy/AdvReac Type Severity Reaction Status Date / Time No Known Allergies Allergy Verified 10/26/24 14:05 Home Medications ?Medication ?Instructions ?Recorded ?Confirmed ?Type ergocalciferol (vitamin D2) 1,250 1,250 mcg PO WEEKLY 03/30/21 10/26/24 History mcg (50,000 unit) capsule ascorbic acid (vitamin C) 100 mg 100 mg PO DAILY 08/17/24 10/26/24 History tablet (Vitamin C) lysine 1,000 mg tablet 1,000 mg PO DAILY 08/17/24 10/26/24 History metoprolol succinate 100 mg 100 mg PO DAILY 08/17/24 10/26/24 History tablet,extended release 24 hr alprazolam 0.5 mg tablet 0.25 mg PO QID PRN anxiety 10/26/24 10/26/24 History esomeprazole magnesium 20 mg 20 mg PO DAILY 10/26/24 10/26/24 History capsule,delayed release (Nexium) tirzepatide (weight loss) 7.5 7.5 mg subcut WEEKLY 10/26/24 10/26/24 History mg/0.5 mL subcutaneous pen injector (Zepbound) Laboratory Tests 11/09/24 07:01 Cotinine Negative Patient hx anesthesia problems: post op nausea/vomiting (Mild after some GA in the past, responds to antiemetics. ) Family hx anesthesia problems: none Results Review: All pre-operative results and documents have been reviewed as part of the pre-operative evaluation. [facility] Past Medical History Medical History Ovarian cyst History of DVT (deep vein thrombosis) Surgical History Surgical History History of hernia repair robotic assisted repair of supraumbilical ventral and umb hernia w/ mesh 04/09/21 History of removal of ovarian cyst History of breast augmentation History of cholecystectomy Family History Family History Grandparent Melanoma Bone cancer Other History of cancer Social History Social History Years smoked: 5 Smoking status: Former smoker Tobacco type: cigarettes Additional smoking assessment comments: PT SMOKES EVERY ONCE IN A WHILE WHEN ANXIOUS X 15 YRS Alcohol intake: former Alcohol use details: Former drinking- last drink 2022 Substance use: former Substance use type: marijuana Other substance usage details: EDIBLES Last use: 2022 Do You Feel Safe in your Home?: Yes Lack of Transportation: No Lack of Food: Never True Current Housing: I Have Housing Concerned About Future Housing: No Difficulty Paying Gas/Electric Bills: No Difficulty Paying for Meds: No Currently Unemployed: No Education: Associate Degree Difficulty w/ Childcare or Family Care: No Living arrangements: with family Additional occupation/education comments: Registered Nurse Spiritual care concerns: No Anes - Eval Final PreProcedure Day of Procedure 11/09/24 08:06 Patient weight: obese Lungs: normal air movement Airway: Mallampati scale class II and special considerations (Caps on top aspect. ) Neurological: alert and oriented Last oral intake: >/= 8 hours ASA classification: II Emergent: no Anesthetic plan: proceed Anesthesia type and monitoring: general ETT and standard monitoring Results Review: All pre-operative results and documents have been reviewed as part of the pre-operative evaluation. Pt w resting tachycardia, stress test done last week which was normal (reported by pt). Informed Consent: The patient's anesthetic plan and its attendant risks and benefits were discussed with the patient/family/POA. Questions were solicited and answers provided to the satisfaction of the patient/family/POA.
[2024-11-09] MEDS: LACTATED RINGERS IRRIG 1,000 ML, LIDOCAINE 1% LOCAL INJ 50 ML, EPINEPHrine HCL INJ 1 MG... INFILTRATE (08:43)
[2024-11-09] MEDS: NACL 0.9% IRRIG POUR BOTTLE 900 ML, GENTAMICIN SULFATE INJ 160 MG, ceFAZolin 2 GM, POVI... IRRIGATION (08:43)
[2024-11-09] MEDS: ceFAZolin 2 GM/D5W 50 ML 2 GM/50 ML BAG IVPB (08:43)
[2024-11-09] MEDS: BUPIVACAINE/EPINEPHRINE 0.5% 30 ML VIAL 60 ML INFILTRATE (10:24)
[2024-11-09] MEDS: ceFAZolin 1 GM/NS 50 ML 1 GM/50 ML BAG IVPB (12:34)
[2024-11-09] MEDS: fentaNYL CITRATE INJ (*CRX) 100 MCG/2 ML VIAL 25 MCG IV PUSH ×4 (16:47→16:58)
[2024-11-09] MEDS: oxyCODONE HCL (*CRX) 5 MG TAB IR PO (17:45)
== END 2024-11-09 18:30 | disposition home or self-care (01) ==
PROVIDERS: Visit Provider Surgery Plastic and Reconstructive Surgery
PROC: (CPT 19316; principal; 2024-11-09 08:30)
PROC: (CPT 19316; 2024-11-09 08:30)
PROC: (CPT 15769; 2024-11-09 08:30)
DX: Z41.1 Encounter for cosmetic surgery (principal); N64.81 Ptosis of breast; L57.4 Cutis laxa senilis
CPT/HCPCS: 19316; 15777 ×2; 15877; 15830; 15847; 80307; A9270; J0171; J0690; J1100; J1171; J1580; J2003; J2004; J2250; J2371; J2405; J2704; J3010; J7120

== ENCOUNTER 2025-01-04 10:11 | Outpatient (NON) | payer OTHER, SELFPAY ==
--- OUTSIDE RECORDS SUMMARY | 2025-01-04 10:25 | XMS_ITS | Clinical Summary ---
Author Organization [facility] Address [address] [place] [address] Phone Care Team Providers Care Asphalt Tamper Name Role Phone Collin Huber MD Primary Care Provider [phone] Encounters Date Type Department Care Team Description 11/04/2024 7:52 AM CDT - 11/04/2024 11:59 PM CDT Hospital Encounter [facility] [address] [place] [phone] Collin Huber MD Discharge Disposition: Discharged to home or Selfcare 11/04/2024 7:45 AM CDT - 11/04/2024 7:51 AM CDT Hospital Encounter [facility] [address] [place] [phone] Collin Huber MD Discharge Disposition: Discharged to home or Selfcare 11/04/2024 Transcribe Orders [facility] [address] [place] [phone] Collin Huber MD Hypertension, unspecified type (Primary Dx) 11/04/2024 Travel 11/03/2024 Transcribe Orders [facility] [address] [place] [address] Collin Huber MD Abnormal EKG (Primary Dx); [...] EXTERNAL EKG - 11/04/2024 10:38 AM CDT [address] [address] Test Date: 2024-11-04 Pat Name: MARK CHOUDHARY Department: Room: Gender: F Rent And Housing Investigator: MAGGIE : 1980 Requested By: COLLIN HUBER Order Number: [id number] Reading MD: Collin Huber MD Measurements Intervals [place] Rate: 81 P: 57 SD: 163 QRS: 31 QRSD: 92 T: 26 QT: 375 QTc: 436 Interpretive Statements Sinus rhythm Electronically Signed On 11-04-2024 10:33:51 CDT by Collin Huber MD Narrative Procedure Note Collin Huber MD - 11/04/2024 IMPRESSION: [address] [address] Test Date: 2024-11-04 Pat Name: MARK CHOUDHARY Department: Room: Gender: F Rent And Housing Investigator: MAGGIE : 1980 Requested By: COLLIN HUBER Order Number: [id number] Reading MD: Collin Huber MD Measurements Intervals [place] Rate: 81 P: 57 SD: 163 QRS: 31 QRSD: 92 T: 26 QT: 375 QTc: 436 Interpretive Statements Sinus rhythm Electronically Signed On 11-04-2024 10:33:51 CDT by Collin Huber MD us Collin Huber MD IMG ECG ORDERABLES Final Result EXTERNAL EKG from Last 3 Months Insurance [employer] Care Teams Asphalt Tamper Relationship Specialty Start Date End Date Collin Huber MD [address] [place] [address] PCP - General Internal Medicine 11/04/24
--- OUTSIDE RECORDS SUMMARY | 2025-01-04 10:25 | XMS_ITS | Clinical Summary ---
Author Organization [facility] Address [address] [place] [address] Care Team Providers Care Diabetes Nurse Name Role Phone Collin Huber MD Primary Care Provider [phone] Source Comments [facility],non-owned Affiliates and Associated Physician Practices is amultiple site organization consisting of ambulatory clinics and hospital sitesin [place], [place], [place] and [place]. This disclosure is being madepursuant to the Care Everywhere program and may not contain all information available regarding this patient. Last updated 18.[employer] [facility] Allergies Active Allergy Reactions Criticality Noted Date [...] mouth nightly as needed for Itching Active metoprolol succinate XL 24hr (Toprol XL) 200 MG tablet Take 1 (one) tablet by mouth once daily Active ondansetron (Zofran) 4 MG tablet Take 1 (one) tablet by mouth every 6 hours as needed for Nausea/Vomiti ng Active spironolactone (Aldactone) 25 MG tablet Take 1 (one) tablet by mouth once daily Active carisoprodol (Soma) 350 MG tablet Take 1 (one) tablet by mouth 3 times daily Active ondansetron, disintegrating, (Zofran ODT) 4 MG tabletIndications :Nausea Take 1 (one) tablet by mouth every 6 hours as needed for Nausea/Vomiti ng Allow tablet to dissolve on the tongue 30 tablet 5 Active ciprofloxacin (Cipro) 500 MG tabletIndications :Pseudomonas infection Take 1 (one) tablet by mouth 2 times daily 14 tablet 5 Active clindamycin (Cleocin) 300 MG capsuleIndication s:Postoperative complication of skin involving drainage from surgical wound Take 1 (one) capsule by mouth 3 times daily for 10 days 30 capsule 5 12/07/19 Active Problems Problem Noted Date Diagnosed Date [...] History of DVT (deep vein thrombosis) 12/24/2016 Encounters Date Type Department Care Team Description 11/30/2024 Orders Only [facility] [address] [place] [phone] Roxy Sher APRN-CNP 11/30/2024 Orders Only [facility] [address] [place] [phone] Roxy Sher APRN-CNP Pseudomonas infection 11/29/2024 Results Follow-Up [facility] [address] [place] [phone] Adams Cramer APRN-CNP 11/26/2024 6:45 PM CDT Office Visit [facility] [address] [place] [phone] Postoperative complication of skin involving drainage from surgical wound (Primary Dx); Nausea 11/26/2024 6:35 PM CDT - 11/26/2024 11:59 PM CDT Hospital Encounter [facility] [address] [place] [address] Roxy Sher APRN-ABDI Discharge Disposition: Home or Self Care 11/26/2024 Travel from Last 3 Months Social History Tobacco Use Types Packs/Day Years Used Date Smoking Tobacco: Former Cigarettes Q uit: 09/06/2015 Smokeless Tobacco: Never Alcohol Use Standard Drinks/Week Comments Yes 0 (1 standard drink = 0.6 oz pur e alcohol) occasional PHQ-2 Answer Date Recorded Patient Health Questionnaire-2 Score 0 11/26/2024 Comments No Sex and Gender Information Value Date Recorded Sex Assigned at Not on file Legal Sex Female 12:03 AM PRODUCT MANAGER Gender Identity Not on file Sexual Orientation Not on file Last Filed Vital Signs Vital Sign Reading Time Taken Comments Blood Pressure 118/78 11/26/2024 6:41 PM CDT Pulse 78 11/26/2024 6:41 PM CDT Temperature 36.5 C (97.7 F) 11/26/2024 6:41 PM CDT Respiratory Rate 16 05/13/2020 11:53 PM PRODUCT MANAGER Oxygen Saturation 98% 11/26/2024 6:41 PM CDT Inhaled Oxygen Concentration - - Weight 75 kg (165 lb 4.8 oz) 05/12/2020 7:44 AM PRODUCT MANAGER Height 160 cm (5' 3) 05/12/2020 7:44 AM PRODUCT MANAGER Body Mass Index 29.28 05/12/2020 7:44 AM PRODUCT MANAGER Plan of Treatment Health Maintenance Due Date Last Done Comments COLOGUARD (AGES 45-75) - COLON CA SCREENING 1980 COLON MONITORING 1979 COLONOSCOPY - COLON CA SCREENING 1979 CT COLONOGRAPHY - COLON CA SCREENING 1979 Colorectal Cancer Screening 1979 FIT - COLON CA SCREENING 1979 FLEX SIG - COLON CA SCREENING 1979 HIV SCREENING 1994 HEPATITIS C SCREENING 06/28/1997 DTAP/TDAP/TD VACCINES (1 - Tdap) 1998 HEPATITIS B VACCINE (1 of 3 - 19+ 3-dose series) 1998 PAP SMEAR 2000 COVID-19 VACCINE ( - season) 2024 INFLUENZA VACCINE (Season Ended) 2025 MAMMOGRAM 10/07/2026 10/07/2024, 04/0 09/2024, 10/06/2023, Additional history exists LIPID TESTING 2028 2023, 08/18/2016 ZOSTER VACCINE (1 of 2) 2029 DEPRESSION SCREENING Completed 11/26/2024 HIB VACCINE Aged Out No longer eligi ble based on patient's age to complete this topic HPV VACCINE Aged Out No longer eligi ble based on patient's age to complete this topic MENINGOCOCCAL (Group B) VACCINE SHARED DECISION-MAKING Aged Out No longer eligible based on patient's age to complete this topic MENINGOCOCCAL GROUPS A/C/Y/W VACCINE Aged Out No longer eligible based on patient's age to complete this topic PNEUMOCOCCAL VACCINE Aged Out No long er eligible based on patient's age to complete this topic Procedures Procedure Name Priority Date/Time Associated Diagnosis Comments CULTURE WOUND+GRAM STAIN Routine 11/26/2024 6:54 PM CDT Postoperative complication of skin involving drainage from surgical wound CULTURE WOUND+GRAM STAIN Routine 11/26/2024 6:54 PM CDT Postoperative complication of skin involving drainage from surgical wound LIPID PROFILE AM Draw 08/18/2016 4:13 AM PRODUCT MANAGER from Last 3 Months or Most Recently Relevant to Health Maintenance Results * (ABNORMAL) CULTURE WOUND+GRAM STAIN (11/26/2024 6:54 PM CDT) Only the most recent of2 resultswithin the time period is included. Culture Heavy Staphylococcus aureus(A) 11/30/2024 5:21 AM CDT [facility] Comment:Staphylococcus aureu s methicillin-susceptible (MSSA) detected by penicillin binding protein immunoassay. Culture Light Pseudomonas putida(A) KATHERINE 11/30/2024 5:21 AM CDT [facility] Culture Light Streptococcus anginosus(A) 11/30/2024 5:21 AM CDT [facility] Gram Stain Heavy Gram-positive cocci 11/30/2024 5:21 AM CDT [facility] Gram Stain No polymorphonuclear cells 11/30/2024 5:21 AM CDT [facility] Gram Stain Rare Squamous epithelial cells 11/30/2024 5:21 AM CDT [facility] Microbiology ENTIRE BREAST / Unknown Collection / Unknown 11/26/2024 6:54 PM CDT 11/26/2024 6:54 PM CDT Narrative [facility] - 11/30/2024 5:21 AM CDT Refer to previously reported susceptibility testing, specimen number:[id number] (Staph aureus) Organism Antibiotic Method Susceptibility Pseudomonas putida Amikacin KATHERINE <=2 ug/mL: Susceptible Pseudomonas putida Cefepime KATHERINE <=1 ug/mL: Susceptible Pseudomonas putida Ceftazidime KATHERINE 2 ug/mL: Susceptible Pseudomonas putida Ciprofloxacin KATHERINE <=0.25 ug/mL: Susceptible Pseudomonas putida Gentamicin KATHERINE <=1 ug/mL: Susceptible Pseudomonas putida Meropenem KATHERINE 4 ug/mL: Susceptible Pseudomonas putida Piperacillin-tazobactam KATHERINE 8 ug/mL: Susceptible Pseudomonas putida Tobramycin KATHERINE <=1 ug/mL: Susceptible Pseudomonas putida Trimethoprim-sulfamethoxazole KATHERINE 80 ug/mL: Resistant us Roxy Sher DIVE MASTER-SIGN BUILDER SUPERVISOR LAB - MICROBIOLOGY ORDERABLES Final Result [facility] [address] [place] [address], [facility] [phone] * (ABNORMAL) LIPID PROFILE (08/18/2016 4:13 AM [facility]) Cholesterol 112 <200 mg/dL 08/18/2016 6:10 AM [facility] Triglycerides 42 <150 mg/dL 08/18/2016 6:10 AM [facility] HDL Cholesterol 46 >40 mg/dL 7 6:10 AM [facility] Chol HDL Ratio 2.4 1.0 - 6.0 08/18/2016 6:10 AM [facility] LDL Calculated 58(L) 65 - 130 mg/dL 08/18/2016 6:10 AM [facility] VLDL Calculated 8(L) 10 - 40 mg/dL 08/18/2016 6:10 AM [facility] Blood BLOOD SPECIMEN / Unknown Lab Venipuncture / Unknown 08/18/2016 4:13 AM PRODUCT MANAGER 08/18/2016 5:00 AM PRODUCT MANAGER Narrative [facility] - 08/18/2016 6:10 AM [facility] Lipid Profile Comment: CHOLESTEROL LEVEL..................CLINICAL INTERPRETATION LESS [...] 2X AVERAGE.................. 9.5 ...................... 7.0 3X AVERAGE...................>23........................>11 us Collin Huber MD LAB - CHEMISTRY ORDERABLES Final Result [facility] [address] [place] [address], [facility] from Last 3 Months or Most Recently Relevant to Health Maintenance Insurance [employer] [facility] Address: [address] [address] Advance Directives * Full Code (Latest Code Status on File) Date Activated Date Inactivated Comments 06/03/2017 9:07 PM 06/09/2017 5:48 PM * Full Code Date Activated Date Inactivated Comments 12/24/2016 3:08 AM 12/29/2016 12:03 PM * Full Code Date Activated Date Inactivated Comments 08/16/2016 9:35 PM 08/22/2016 2:16 PM Care Teams Diabetes Nurse Relationship Specialty Start Date End Date Collin Huber MD [address] [place] [address] PCP - General Internal Medicine 03/19/16
--- OUTSIDE RECORDS SUMMARY | 2025-01-04 10:25 | XMS_ITS | Encounter Summary ---
Author Organization [facility] Address [address] [place] [address] Care Team Providers Care Assessment Services Manager Name Role Phone Collin Huber MD Primary Care Provider [phone] Encounter Details Date Type Department Care Team (Late st Contact Info) Description 11/29/2024 Results Follow-Up [facility] [address] [place] [address] Adams Cramer, RADIOLOGY CLERK-SOCK MENDER [address] [place], [place] [id number] Social History Tobacco Use Types Packs/Day Years [...] on file Legal Sex Female 12:03 AM SYSTEMS TEST TECHNICIAN Gender Identity Not on file Sexual Orientation Not on file documented as of this encounter Functional Status * Is person deaf or have serious hearing difficulty? Answer Date of Assessment Author No 05/14/2020 11:45 AM Brent Higginbotham RN * Is person blind or have serious difficulty seeing? Answer Date of Assessment Author No 05/14/2020 11:45 AM Brent Higginbotham RN * Does person have serious difficulty walking/climbing stairs? Answer Date of Assessment Author No 05/14/2020 11:45 AM Brent Higginbotham RN * Does person have difficulty dressing/bathing? Answer Date of Assessment Author No 05/14/2020 11:45 AM Brent Higginbotham RN * Does person have difficulty doing errands alone? Answer Date of Assessment Author No 05/14/2020 11:45 AM Brent Higginbotham RN documented as of this encounter Mental Status * Does person have difficulty concentrating/remembering/making decisions? Answer Entry Date Author No 05/14/2020 11:45 AM Brent Higginbotham RN documented in this encounter Progress Notes * Roxy Sher APRN-CNP - 11/30/2024 7:48 AM CDT Please advise complete all the clindamycin. Take probiotics and yogurt. Once antibiotic is completestart Cipro. * Roxy Sher APRN-CNP - 11/30/2024 6:59 AM CDT Please advise her to complete all the clindamycin to cover staph and strep, take probiotics daily and eat yogurt. Then take the cipro I just sent in to cover for the Pseudomonas putida. * Tashia Tavares APRN-CNP - 11/29/2024 11:26 AM CDT Noted preliminary culture of wound, on clindamycin, appropriate for now, sensitivity pending. Will await sensitivity. Has preliminary showing, heavy staph aureus, pseudomonas putida and streptococcusanginosus growth. documented in this encounter Plan of Treatment Not on file documented as of this encounter Visit Diagnoses Not on filedocumented in this encounter Care Teams Assessment Services Manager Relationship Specialty Start Date End Date Collin Huber MD [address] [place] [address] PCP - General Internal Medicine 03/19/16 documented as of this encounter
--- OUTSIDE RECORDS SUMMARY | 2025-01-04 10:25 | XMS_ITS | Clinical Summary ---
Author Organization [facility] Address [address] [place] [address] Care Team Providers Care Bowling Floor Desk Clerk Name Role Phone Collin Huber MD Primary Care Provider [phone] Allergies No known active allergies Medications ALPRAZolam [...] Problems Problem Noted Date Diagnosed Date Pancreatitis ([facility]/HCC) 07/02/2023 Encounters Date Type Department Care Team Description 12/13/2024 7:00 AM CDT - 12/13/2024 11:59 PM CDT Hospital Encounter [facility] [address] [place] [id number] John Carpenter MD Discharge Disposition: Home or Self Care (Routine Discharge) 12/13/2024 Orders Only [facility] [address] [place] [id number] John Carpenter MD 12/13/2024 Orders Only [facility] [address] [place] [address] John Carpenter MD 12/13/2024 Travel 10/07/2024 4:27 PM CDT - 10/07/2024 11:59 PM CDT Hospital Encounter [facility] [address] [place] [id number] Najma Christensen CNM Discharge Disposition: Home or Self Care (Routine Discharge) 10/07/2024 Travel from Last 3 Months Social History Tobacco Use Types Packs/Day Years Used Date Smoking Tobacco: Some Days Cigarettes Started: 2009 Tobacco Cessation:Ready to Q uit: Not Asked; Counseling Given: Not Answered [facility] Utilities Answer Date Recorded In the past 12 months has e [employer], gas, oil, or water [employer] threatened to shut off services in your [...] place to sleep or slept in a long term (including now)? No 07/02/2023 Comments Unknown Sex and Gender Information Value Date Recorded Sex Assigned at Female 12/13/2024 7:07 AM CDT Legal Sex Female 7:19 PM CDT Gender Identity Not on file Sexual Orientation Not on file Last Filed Vital Signs Vital Sign Reading Time Taken Comments Blood Pressure 135/73 2023 11:15 AM SERVICE LIAISON REPRESENTATIVE Pulse 78 2023 11:15 AM SERVICE LIAISON REPRESENTATIVE Temperature 36.9 C (98.5 F) 2023 11:15 AM SERVICE LIAISON REPRESENTATIVE Respiratory Rate 20 2023 11:15 AM SERVICE LIAISON REPRESENTATIVE Oxygen Saturation 100% 2023 11:15 AM SERVICE LIAISON REPRESENTATIVE Inhaled Oxygen Concentration - - Weight 80.1 kg (176 lb 9.6 oz) 07/02/2023 11:11 AM SERVICE LIAISON REPRESENTATIVE Height 160 cm (5' 3) 07/02/2023 11:11 AM SERVICE LIAISON REPRESENTATIVE Body Mass Index 31.28 07/02/2023 11:11 AM SERVICE LIAISON REPRESENTATIVE Plan of Treatment Health Maintenance Due Date [...] Screening with HPV 2009 COVID-19 Vaccine ( season) 2024 Mammogram Screening 10/07/2026 10/07/2024, 10/06/2023, [...] Procedure Name Priority Date/Time Associated Diagnosis Comments VITAMIN B1 THIAMINE Routine 12/13/2024 7 :16 AM CDT Encounter for wound care of surgical pin site BASIC METABOLIC PANEL Routine 12/13/2024 7:16 AM CDT Encounter for wound care of surgical pin site PREALBUMIN Routine 12/13/2024 7:15 AM CDT Encounter for wound care of surgical pin site ALBUMIN, SERUM Routine 12/13/2024 7:15 AM CDT Encounter for wound care of surgical pin site CBC W/DIFF AUTOMATED Routine 12/13/2024 7:15 AM CDT Encounter for wound care of surgical pin site MG SCREENING IMPLANT W JOSE G SRIRAM DIGI Routine 10/07/2024 4:39 PM CDT Encounter for screening mammogram for malignant neoplasm of breast from Last 3 Months Results * (ABNORMAL) BASIC METABOLIC PANEL (12/13/2024 7:16 AM CDT) Pathologist [facility] GLUCOSE 96 70 - 99 MG/DL 12/13/2024 8:40 AM CDT [facility] BUN 26(H) 7 - 18 MG/DL 12/13/2024 8:40 AM CDT [facility] CREATININE S/P/B 0.70 0.55 - 1.02 MG/DL 12/13/2024 8:40 AM CDT [facility] SODIUM S/P/B 137 136 - 145 MMOL/L 12/13/2024 8:40 AM CDT [facility] POTASSIUM S/P/B 3.4(L) 3.5 - 5.1 MMOL/L 12/13/2024 8:40 AM CDT [facility] CHLORIDE S/P/B 102 100 - 108 MMOL/L 12/13/2024 8:40 AM CDT [facility] CO2 28.4 21 - 32 MMOL/L 12/13/2024 8:40 AM CDT [facility] CALCIUM S/P/B 9.3 8.5 - 10.1 MG/DL 12/13/2024 8:40 AM CDT [facility] ANION GAP 6.6 5 - 15 MMOL/L 12/13/2024 8:40 AM CDT [facility] BUN CREATININE RATIO 37.1(H) 6 - 26 12/13/2024 8:40 AM CDT [facility] GFR ESTIMATE >90 >90 ML/MIN/1.7 3 M2 12/13/2024 8:40 AM CDT [facility] Comment: NOTE: eGFR is not calculated for patients <18 years of age. This is an estimated GFR calculation using the new CKD EPI creatinine equation without race and so does not require a correction factor for race. This estimated GFR should not be used for calculating drug doses. 12/13/2024 7:16 AM CDT John Carpenter MD LABORATORY Final Result [facility] [address] [place] [address], [place] [phone] * (ABNORMAL) VITAMIN B1 THIAMINE (12/13/2024 7:16 AM CDT) [facility] VITAMIN B1 S/P/B 91(H) 8 - 30 nmol/L 12/17/2024 4:54 PM CDT [facility] Comment: Vitamin supplementation within 24 hours prior to blood draw may affect the accuracy of the results. This test was developed and its analytical performance characteristics have been determined by [employer] [place], [place]. It has not been cleared or approved by the U.S. Food and Drug Administration. This assay has been validated pursuant to the CLIA regulations and is used for clinical purposes. Test Performed by Harini Frank, [facility] Ab[facility] Wheelerhipolito Zambrano, [address] [place] [address] Hieu Vicente M.D., Ph.D., Director of Laboratories , CLIA [id number] 12/13/2024 7:16 AM CDT us John Carpenter MD LABORATORY Final Result [facility] [address] [place], [place] , [place] [phone] * PREALBUMIN (12/13/2024 7:15 AM CDT) Pathologist [facility] PREALBUMIN 30 17 - 34 mg/dL 12/18/2024 4:37 AM CDT [facility] Comment: Test Performed by [facility], [facility], [address] [place], [place] Hieu Vicente M.D., Ph.D., Director of Laboratories , [facility] [id number] 12/13/2024 7:15 AM CDT John Carpenter MD LABORATORY Final Result Performing Organization Address City/[facility]/ZIP Co de Phone Number [facility] [address] [place], [place] , [place] [phone] * (ABNORMAL) CBC W/DIFF AUTOMATED (12/13/2024 7:15 AM CDT) WBC 6.12 4.50 - 11.00 x10'3/uL 12/13/2024 8:25 AM CDT [facility] RBC 3.53(L) 4.20 - 5.40 x10'6/uL 12/13/2024 8:25 AM CDT [facility] HGB 11.2(L) 12.0 - 16.0 G/DL 12/13/2024 8:25 AM CDT [facility] HCT 34.6(L) 38.0 - 48.0 % 12/13/2024 8:25 AM CDT [facility] MCV 98.0 81.0 - 99.0 FL 12/13/2024 8:25 AM CDT [facility] MCH 31.7(H) 27.0 - 31.0 PG 12/13/2024 8:25 AM CDT [facility] MCHC 32.4 32.0 - 36.0 G/DL 12/13/2024 8:25 AM CDT [facility] RDW 13.4 11.5 - 14.5 % 12/13/2024 8:25 AM CDT [facility] PLT 459(H) 130 - 400 x10'3/uL 12/13/2024 8:25 AM CDT [facility] MPV 10.0 9.3 - 12.2 FL 12/13/2024 8:25 AM T [facility] CBC COMMENT AUTOMATED RBC MORPHOLOGY AND PLATELET EVALUATION NORMAL 12/13/2024 8:25 AM CDT [facility] NEUTROPHILS % 45.0 % 12/13/2024 8:25 AM CDT [facility] LYMPHOCYTES % 36.1 % 12/13/2024 8:25 AM T [facility] MONOCYTES % 7.2 % 12/13/2024 8:25 AM CDT [facility] EOSINOPHILS 10.9 % 12/13/2024 8:25 AM T [facility] BASOPHILS 0.5 % 12/13/2024 8:25 AM CDT [facility] IMMATURE GRANS % 0.3 % 12/14/19 8:25 AM CDT [facility] NRBC % 0.0 % 12/13/2024 8:25 AM CDT [facility] ABS. NEUTROPHILS TOTAL 2.75 1.80 - 7.70 x10'3/uL 12/13/2024 8:25 AM CDT [facility] ABS. LYMPHOCYTES 2.21 1.00 - 4.80 x10'3/uL 12/13/2024 8:25 AM CDT [facility] ABS. MONOCYTES 0.44 0.24 - 0.86 x10'3/uL 12/13/2024 8:25 AM CDT [facility] ABS. EOSINOPHILS 0.67(H) 0.04 - 0.36 x10'3/uL 12/13/2024 8:25 AM CDT [facility] ABS. BASOPHILS 0.03 0.01 - 0.08 x10'3/uL 12/13/2024 8:25 AM CDT [facility] ABS. IMMATURE GRANULOCYTES 0.02 0.00 - 0.49 x10'3/uL 12/13/2024 8:25 AM CDT [facility] ABS. NUCLEATED RBC'S 0.00 0.00 - 0.01 x10'3/uL 12/13/2024 8:25 AM CDT [facility] 12/13/2024 7:15 AM CDT us John Carpenter MD LABORATORY Final Result [facility] [address] [place] [address], [place] [phone] * ALBUMIN, SERUM (12/13/2024 7:15 AM CDT) ALBUMIN S/P/B 3.8 3.4 - 5.0 G/DL 12/13/2024 10:09 AM CDT [facility] 12/13/2024 7:15 AM CDT us John Carpenter MD LABORATORY Final Result [facility] [address] [place] [address], [place] [phone] * MG SCREENING IMPLANT W JOSE G SRIRAM DIGI (10/07/2024 4:39 PM CDT) Anatomical Region Laterality Modality Breast Bilateral Mammography 10/07/2024 5:20 PM CDT Impressions 10/07/2024 5:23 PM CDT IMPRESSION: No significant interval change. No mammographic evidence of malignancy. RECOMMENDATION: Routine ScreeningBilateral OVERALL IMAGING ASSESSMENT: ACR BI-RADS 2 - BENIGN FINDING(S). Ordered By: NAJMA CHRISTENSEN Interpreted By: Chadd Rdz, 10/07/2024 5:20 PM Narrative 10/07/2024 5:23 PM CDT [address] [address] EXAMINATION: MG SCREENING IMPLANT W JOSE G [...] asymmetry or architectural distortion. No axillary adenopathy. Najma Christensen [facility] MAMMO Final Result from Last 3 Months Insurance [employer] OPEN ACCESS [facility] Advance Directives * Full Code (Latest Code Status on File) Date Activated Date Inactivated Comments 07/02/2023 12:17 PM 2023 4:08 PM Care Teams Bowling Floor Desk Clerk Relationship Specialty Start Date End Date Collin Huber MD PCP - General INTERNAL MEDICINE 06/12/20
== END 2025-01-04 10:12 | disposition home or self-care (01) ==
LOC: ANHLAB 10:13
PROVIDERS: Visit Provider Surgery Plastic and Reconstructive Surgery
DX: S71.002A Unspecified open wound, left hip, initial encounter (principal); X58.XXXA Exposure to other specified factors, initial encounter
CPT/HCPCS: 87070; 87075; 87205